=== PATIENT | male | born 1985 | race Hispanic/Latino ===

== ENCOUNTER 2024-10-15 17:28 | Emergency (ER) | payer OTHER ==
[~2024-10-15] VITALS: Ht 180.3 cm; Wt 74.8 kg
[2024-10-15 17:57] LABS: IMMATURE GRANULOCYTE ABSOLUTE 0.01 K/uL (0-1); NUCLEATED RED BLOOD CELLS 0.0 % (0.0-0.19); PLATELET COUNT (AUTO) 191 K/uL (130-400); RED BLOOD CELL COUNT(AUTO) 4.63 MIL/uL (4.50-6.20); RED CELL DISTRIBUTION WIDTH 12.3 % (11.0-15.5); WHITE BLOOD COUNT (AUTO) 6.3 K/uL (4.8-10.8)
[2024-10-15 18:04] LABS: APPEARANCE,URINE CLEAR (CLEAR); GLUCOSE, URINE (UA) NEGATIVE (NEGATIVE); LEUKOCYTE ESTERASE ,URINE NEGATIVE Leu/uL (NEGATIVE); NITRATE,URINE NEGATIVE (NEGATIVE); OCCULT BLOOD,URINE NEGATIVE (NEGATIVE)
[2024-10-15 18:06] LABS: ADD UA MICROSCOPIC NO
[2024-10-15 18:07] LABS: CREATININE 0.8 mg/dL (0.5-1.3); GLOMERULAR FILTR. RATE CALC 116.0 mL/min (>90); GLUCOSE,RANDOM 122.0 mg/dL (70-105); SODIUM SERUM 142.0 mmol/L (136-145); UREA NITROGEN, BLOOD 19.0 mg/dL (7-18)
[2024-10-15 18:16] LABS: CREATINE KINASE, TOTAL 177.0 U/L (21-232)
--- NOTE | 2024-10-15 19:02 | HMCIMG ---
EXAM: CR Chest, 2 View. CLINICAL HISTORY: CHEST PAIN COMPARISON: None provided. FINDINGS: LUNGS: There is no mass, infiltrate, or acute pulmonary abnormality. PLEURAL SPACES: No evidence of pleural effusion or pneumothorax. MEDIASTINUM: Cardiac size and mediastinal contours within normal limits. BONES: No aggressive appearing osseous lesion seen. IMPRESSION: No acute cardiopulmonary pathology is evident. /[place]
[2024-10-15 20:26] VITALS: BP 105/71; PULSE 56; RESP 17; TEMP 98; O2SAT 97
--- NOTE | 2024-10-15 20:34 | ERN ---
ED Note History of Present Illness Stated Complaint: CP Chief Complaint: Chest Pain Time Seen by MD: 17:29 Time Seen by Midlevel: 17:30 Dictation: 38-year-old male who presents to the emergency department due to reported having had his level of discomfort as a 2/10. Initially, he rated his discomfort low as a 5/10. Patient states that he felt a pressure type of sensation. He states that this occurred while he was at work. Patient states that he is primarily right now under a lot of cooking and does not know whether or not this might be related to it. At this time, he denies having any shortness of breath associa stacy with this. Upon initial evaluation, the patient presents in no acute distress. Allergies: Coded Allergies: No Known Drug Allergies (Unverified Allergy, Unknown, 10/15/24) Past Medical History Past Medical History: No Pertinent History Surgical History: Other Surgical History Other: LEFT ARM PSYCH History: no pertinent psych hx Review of System Dictation Cardiovascular: Chest pain Initial Vital Sign VS Vital Signs Date Time Temp Pulse Resp B/P (MAP) Pulse Ox O2 Delivery O2 Flow Rate FiO2 10/15/24 17:29 98.2 61 18 151/77 100 Room Air 10/15/24 17:40 0 21 Physical Exam Dictation General: awake, alert, NAD Head/Face: Normocephalic, atraumatic Eyes: PERRL, EOMI ENT: Oral mucosa moist Neck: Trachea midline, supple Cardiovascular: RRR, no edema Respiratory: Symmetrical, non-labored Abdomen: Soft, non-tender, non-distended, no guarding. Skin: Warm, dry, good turgor, no rash MS/Extremity: Pulses equal, no cyanosis, neurovascular intact, FROM Neuro: COAx4, GCS 15, steady gait, Psych: Normal behavior, mood, and affect normal Results (Laboratory/Radiology) Laboratory/Radiology Laboratory Tests Test 10/15/24 17:51 10/15/24 17:56 10/15/24 19:57 White Blood Count 6.3 K/uL (4.8-10.8) Red Blood Count 4.63 MIL/uL (4.50-6.20) Hemoglobin 14.5 g/dL (14.0-18.0) Hematocrit 41.6 % (42-54) L Mean Corpuscular Volume 89.8 fL (79-99) Mean Corpuscular Hemoglobin 31.3 pg (27.0-33.0) Mean Corpuscular Hemoglobin Concent 34.9 g/dL (32.0-36.0) Red Cell Distribution Width 12.3 % (11.0-15.5) Platelet Count 191 K/uL (130-400) Mean Platelet Volume 11.8 fL (7.5-10.5) H Immature Granulocyte % (Auto) 0.2 % (0-1) Neutrophils (%) (Auto) 48.7 % (40.0-77.0) Lymphocytes (%) (Auto) 42.6 % (21.0-51.0) Monocytes (%) (Auto) 5.5 % (3.0-13.0) Eosinophils (%) (Auto) 2.5 % (0.0-8.0) Basophils (%) (Auto) 0.5 % (0.0-5.0) Neutrophils # (Auto) 3.1 K/uL (1.8-7.7) Lymphocytes # (Auto) 2.7 K/uL (1.0-4.8) Monocytes # (Auto) 0.4 K/uL (0.1-1.0) Eosinophils # (Auto) 0.16 K/uL (0.00-0.70) Basophils # (Auto) 0.03 K/uL (0.00-0.20) Absolute Immature Granulocyte (auto 0.01 K/uL (0-1) Nucleated Red Blood Cells 0.0 % (0.0-0.19) Sodium Level 142 mmol/L (136-145) Potassium Level 3.6 mmol/L (3.5-5.1) Chloride Level 104 mmol/L (101-111) Carbon Dioxide Level 29 mmol/L (21-32) Blood Urea Nitrogen 19 mg/dL (7-18) H Creatinine 0.8 mg/dL (0.5-1.3) Glomerular Filtration Rate Calc 116 mL/min (>90) Random Glucose 122 mg/dL (70-105) H Total Calcium 9.0 mg/dL (8.5-10.1) Total Creatine Kinase 177 U/L (21-232) Troponin I High Sensitivity 14 ng/L (4-75) 13 ng/L (4-75) Urine Color YELLOW (YELLOW) Urine Appearance CLEAR (CLEAR) Urine pH 6.0 (5.0-8.0) Urine Specific [place] 1.032 (1.001-1.031) Urine Protein NEGATIVE mg/dL (NEGATIVE) Urine Glucose (UA) NEGATIVE mg/dL (NEGATIVE) Urine Ketones 10 mg/dL (NEGATIVE) H Urine Occult Blood NEGATIVE (NEGATIVE) Urine Nitrate NEGATIVE (NEGATIVE) Urine Bilirubin NEGATIVE mg/dL (NEGATIVE) Urine Urobilinogen 0.2 mg/dL (0.2-1.0) Urine Leukocyte Esterase NEGATIVE Curry/uL Labs Reviewed?: Yes EKG Comment: EKG done 10/15/2024 at 5:32 p.m. Ventricular rate of 55 beats per minute CA 183 MS QRS 123 MS QT 472 MS No STEMI. X-RAY Comment: Chest x-ray one view with no infiltrates and a normal-appearing cardiac silhouette as interpreted me. ED Course ED Course Orders Procedure Category Date Status Time Vital Signs Per CPOE 10/15/24 Transmitted Routine 17:37 Chest 1vw RAD 10/15/24 Resulted 17:37 12 Lead Ekg Tracing- EKG 10/15/24 Logged Technical 17:37 Oxygen By Nc/Pulse Ox CPOE 10/15/24 Transmitted 17:37 Maintain Iv CPOE 10/15/24 Transmitted 17:37 Iv Insertion CPOE 10/15/24 Transmitted 17:37 Cardiac Monitoring CPOE 10/15/24 Transmitted 17:37 Pulse Oximetry With CPOE 10/15/24 Transmitted Vs And Prn 17:37 Cbc With Differential LAB 10/15/24 Complete 17:37 Activity: Br W/Brp CPOE 10/15/24 Transmitted With Assist 17:37 Creatine Kinase, Total LAB 10/15/24 Complete 17:37 Urinalysis Profile LAB 10/15/24 Complete 17:37 Basic Metabolic Panel LAB 10/15/24 Complete 17:37 Troponin I High LAB 10/15/24 Complete Sensitivity 17:42 Troponin I High LAB 10/15/24 Complete Sensitivity 19:48 Vital Signs Date Time Temp Pulse Resp B/P (MAP) Pulse Ox O2 Delivery O2 Flow Rate FiO2 10/15/24 19:25 98.2 55 16 106/74 99 Room Air* 0 21 10/15/24 17:40 98.2 61 19 121/52 99 Room Air* 0 21 10/15/24 17:29 98.2 61 18 151/77 100 Room Air HEART Score Response (Comments) Value History: Low suspicion (0) 0 EKG: Normal 0 Age: < 45yrs (0) 0 Risk Factors: No known risk factors (0) 0 Initial Troponin: Normal limit (0) 0 HEART Score Risk: Low Risk for MACE (1-3) Total 0 Medical Decision Making MDM MDM: Differential diagnosis: Chest pain, STEMI, non STEMI. Rationale: Tests considered and ordered secondary to shared decision making include: Previous outside records reviewed: Old ER visits. Risk of complication and/or morbidity or mortality of patient management: None Medications-Per medication reconciliation Need for hospitalization: Patient does not meet criteria for hospitalization. Need for emergency major/minor surgery: No There are no social concerns with this patient. Prescription drug management Prescriptions will include symptomatic care Patient's prior external medical records from other ER visits were reviewed by me as indicated. Prior testing and results from previous visits were reviewed. Prior tests were taken into account with medical decision making and resource utilization, independent historian/historians were used to obtain complete medical history. I independently interpreted the test that were performed, results were reviewed by me and considered findings on radiology if ordered. Medical management and examination interpretation discussions were had by me with other qualified healthcare professionals as indicated for the patient's care. DX & DISP Disposition: Discharge Departure Impression: Primary Impression: Chest pain Condition: Stable Referrals: SELF,REFERRAL (PCP) ARIANNA CLARK Oct 15, 2024 20:34
--- NOTE | 2024-10-16 11:06 | EKG ---
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
== END 2024-10-15 20:42 | disposition home or self-care (01) ==
LOC: EDH 17:28
DX: R07.89 Other chest pain (principal)
CPT/HCPCS: 36415; 71045; 80048; 81003; 82550; 84484; 85025; 93005; 99285